=== PATIENT | male | born 1985 | race Two or more races ===

== ENCOUNTER 2020-09-29 11:57 | Inpatient (IN) | payer OTHER ==
[~2020-09-29] VITALS: Ht 185.4 cm; Wt 99.8 kg
[2020-09-29] MEDS ORDERED: KETOROLAC TROMETH 60MG/2ML VIAL IM ONE (13:15)
[2020-09-29] MEDS ORDERED: ONDANSETRON ODT 4 MG TAB PO ONE (13:15)
[2020-09-29] MEDS ORDERED: ONDANSETRON HCL 4 MG/2 ML VIAL IV ONE (13:15)
[2020-09-29] MEDS ORDERED: KETOROLAC TROMETH 30 MG/ML 1ML VIAL IV ONE (13:15)
[2020-09-29] MEDS ORDERED: SODIUM CHLORIDE 0.9% 1,000 ML IV ONE ×3 (13:15→16:15)
[2020-09-29 13:16] LABS: Urine Bacteria NONE SEEN /hpf (None Seen); Urine Blood Negative /uL (Negative); Urine Mucus FEW (None Seen); Urine Specific Gravity 1.029 (1.001-1.035); Urine WBC 1 /hpf (0 - 3)
[2020-09-29 13:41] LABS: Basophils # (auto) 0 10 ^3/uL (0-0.2); Basophils % (auto) 0.4 % (0.0-2.0); Eosinophils # (auto) 0 10 ^3/uL (0-0.8); Eosinophils % (auto) 0.2 % (0.0-7.0); Hematocrit 43.6 % (41.0-53.0); Hemoglobin 15.1 g/dL (13.5-17.5); Lymphocytes # (auto) 2.4 10 ^3/uL (0.4-5.4); Lymphocytes % (auto) 25.4 % (10.0-50.0); Mean Corpuscular Hgb Conc. 34.6 g/dL (32.0-36.0); Mean Corpuscular Volume 83.8 fL (80.0-100.0); Monocytes # (auto) 0.9 10 ^3/uL (0-1.3); Monocytes % (auto) 9.1 % (0.0-12.0); Neutrophils # (auto) 6.1 10 ^3/uL (1.6-8.6); Neutrophils % (auto) 64.9 % (37.0-80.0); Nucleated Red Blood Cells % 0.1 %; Red Blood Cells 5.21 10^6/uL (4.5-5.90); Red Cell Distribution Width 13.5 % (11.8-14.3); White Blood Cell 9.5 10^3/uL (4.4-10.8)
[2020-09-29] MEDS ORDERED: HYDROmorphone HCL 2 MG/ML VL IV ONE (13:45)
[2020-09-29 14:00] LABS: Potassium 3.8 mmol/L (3.5-5.1)
[2020-09-29 14:06] LABS: BUN/Creatinine Ratio 15.5
[2020-09-29] MEDS ORDERED: IOHEXOL 300 MG/ML 100ML BOTTLE IJ ONE (14:07)
[2020-09-29 14:59] LABS: Albumin 4.3 g/dL (3.4-5.0); Calcium 8.9 mg/dL (8.5-10.1); Potassium 3.8 mmol/L (3.5-5.1)
[2020-09-29 15:03] LABS: BUN/Creatinine Ratio 14.2; Bilirubin, Total 0.6 mg/dL (0.2-1.0); Total Protein 8.6 g/dL (6.4-8.2)
[2020-09-29] MEDS ORDERED: cefTRIAXone 1GM/50ML D5W 50 ML IV ONE (15:15)
[2020-09-29] MEDS ORDERED: AZITHROMYCIN 500MG/ 250ML 250 ML IV ONE (15:15)
[2020-09-29 16:15] VITALS: BP 148/94
[2020-09-29] MEDS ORDERED: ACETAMINOPHEN 500 MG TAB PO PRN (16:15)
[2020-09-29] MEDS ORDERED: LABETALOL HCL 5 MG/ML 4ML SYRINGE IV PRN (16:15)
[2020-09-29] MEDS ORDERED: LORazepam 0.5 MG TAB PO PRN (16:15)
[2020-09-29] MEDS ORDERED: DOCUSATE CALCIUM 240 MG CAP PO PRN (16:15)
[2020-09-29] MEDS ORDERED: KETOROLAC TROMETH 60MG/2ML VIAL IM PRN (16:15)
[2020-09-29] MEDS ORDERED: ALBUTEROL SULF HFA 90MCG INH 200DOSE IN PRN (16:15)
[2020-09-29] MEDS ORDERED: NITROGLYCERIN 0.4 MG SL TAB SL PRN (16:15)
[2020-09-29 16:50] LABS: CRP High Sensitivity 0.07 mg/dL (< 0.3); Magnesium 2.4 mg/dL (1.6-2.6)
[2020-09-29] MEDS ORDERED: HYDROmorphone HCL 2 MG/ML VL IV PRN (17:30)
[2020-09-29] MEDS ORDERED: DOXYCYCLINE 100MG/250ML 250 ML IV SCH (22:00)
[2020-09-29] MEDS ORDERED: ENOXAPARIN SOD 40 MG/0.4 ML SYRINGE SC SCH (22:00)
[2020-09-29] MEDS ORDERED: BUDESONIDE (INHALATION) 180 MCG IH IN SCH (22:00)
[2020-09-30] MEDS ORDERED: PANTOPRAZOLE 40 MG TAB PO SCH (10:00)
[2020-09-30] MEDS ORDERED: AZITHROMYCIN 500MG/ 250ML 250 ML IV SCH (10:00)
[2020-09-30] MEDS ORDERED: ZINC SULFATE 220mg CAP or TAB PO SCH (10:00)
[2020-09-30] MEDS ORDERED: ASCORBIC ACID 1,000 MG TAB PO SCH (10:00)
[2020-09-30] MEDS ORDERED: CHOLECALCIFEROL (VITD3) 2,000 UNIT CAP/TAB PO SCH (10:00)
== END 2020-09-29 17:59 | disposition left against medical advice (07) | DRG 177 ==
LOC: ER 11:57 → TELE 11:58
PROVIDERS: ADMIT Family Medicine; ATTEND Family Medicine
DX: U07.1 COVID-19 (principal); J12.82 Pneumonia due to coronavirus disease 2019; F41.9 Anxiety disorder, unspecified; Z90.49 Acquired absence of other specified parts of digestive tract; Z88.5 Allergy status to narcotic agent; Z53.29 Procedure and treatment not carried out because of patient's decision for other reasons
CPT/HCPCS: 36415; 71046; 74176; 74177; 80048; 80053; 81001; 82306; 82728; 83615; 83690; 83735; 84443; 85025; 85379; 86141; 96361; 96365; 96367; 96372; 96375; G0378; J0696; J1885; J2405